=== PATIENT | male | born 1960 | race Caucasian/White ===

== ENCOUNTER 2017-08-05 15:48 | Day surgery (SDC) | payer OTHER ==
[~2017-08-05 15:48] MED LIST: Ketorolac Tromethamine 30 MG/ML VIAL ONE; Lidocaine 1% PF 5 ML VIAL ONE; PROPOFOL 200 MG/20 ML VIAL ONE; Succinylcholine Chloride 20 MG/ML 10 ml SYRINGE FS ONE
[2017-08-05] MEDS ORDERED: Morphine 4 MG/ML Carpuject ONE ×2 (16:07→16:43)
[2017-08-05] MEDS ORDERED: Adacel (T-DAP) 0.5 ML VIAL ONE (16:12)
[2017-08-05] MEDS ORDERED: CEFAZOLIN/Water 2 GM/20 ML SYRINGE SLOW IVP SCH (16:30)
[2017-08-05] MEDS ORDERED: Lidocaine 1% PF 5 ML VIAL ONE (16:57)
--- NOTE | 2017-08-05 17:15 | RAD ---
RIGHT HAND TWO VIEW 08/05/17 HISTORY: Foreign body. COMPARISON: None. FINDINGS: Foreign object is seen through what appears to be second distal and middle phalanx curling over the d istal interphalangeal joint. IMPRESSION: Radiopaque, likely a nail, coursing through the distal phalanx diaphysis and middle phalanx diaphysis crossing over the distal interphalangeal joint. POS: CHANDAN
[2017-08-05] MEDS ORDERED: Bacitracin Zinc Ointment 30 gm TUBE ONE (17:17)
[2017-08-05] MEDS ORDERED: Bupivacaine/Epinephrine 0.25% 30 ML VIAL ONE (17:17)
[2017-08-05] MEDS ORDERED: Sodium Chloride 0.9% 10 ML ONE ×2 (17:18→19:01)
[2017-08-05] MEDS ORDERED: Thrombin 5000 UNITS/5 ML VIAL ONE (17:21)
[2017-08-05] MEDS ORDERED: Bupivacaine PF 0.5% 30 ML VIAL ONE (17:21)
[2017-08-05] MEDS ORDERED: Midazolam HCl 2 mg/2 ml Vial ONE (18:09)
[2017-08-05] MEDS ORDERED: Fentanyl 100 MCG/2 ML VIAL ONE (18:09)
[2017-08-05] MEDS ORDERED: Ketorolac Tromethamine 30 MG/ML VIAL ONE (19:12)
[2017-08-05] MEDS ORDERED: HYDROcodone/Acetaminophen 5/325 mg Tablet ONE ×2 (19:39)
--- NOTE | 2017-08-05 22:24 | RAD ---
RIGHT FINGER MINIMUM TWO VIEW 08/05/17 HISTORY: Nail removal. COMPARISON: Radiograph same day. FINDINGS: Minimal fluoroscopic images. Imaged demonstrate satisfactory appearance with removal of the nail. IMPRESSION: Satisfactory removal of the nail. POS: MARY
--- NOTE | 2017-08-06 07:12 | OP ---
DATE OF PROCEDURE: 08/05/2017 SURGEON: Chris Mchugh M.D. ANESTHESIA: General LMA technique augmented by 10 mL of 0.5% Marcaine metacarpophalangeal block, lev el of the index finger without epinephrine. PREOPERATIVE DIAGNOSES: Large nail from a nail gun that initially went through a board into his fing er, distal third of the right nondominant index finger and then into another board. The boards were on the wall and required the ambulance service to remove the boards from the wall, and then in the em ergency room, my partner, Dr. Koffi Khan, evaluated the patient and removed the board from the [facility]. This left me with a nail protruding, and the patient is neurologically and vascularly intact. PROCEDURES PERFORMED: 1. Open middle phalanx fracture debridement of material associated with open fracture. 2. Open debridement of wound. 3. Removal of nail, metallic foreign body. 4. C-arm supervision. TOURNIQUET TIME: 14 minutes. ESTIMATED BLOOD LOSS: 10 mL. By exam, exploration, and 2-point discrimination before the surgery, both the digital nerves, flexor profundus and extensors were intact. DESCRIPTION OF PROCEDURE: After successful general LMA technique, the limb was prepped and draped. Timeout was done appropriately. We then injected the metacarpophalangeal joint level with 10 mL of 0 .5% Marcaine with epinephrine for digital block. Now 5 minutes later, [facility], identified which side of the nail was curved, and it was the distal radial aspect, so we removed it from distal ulnar aspect and we removed it from this point. We dissected down to the nail as it entered into the soft tissue and the bone, visualizing it going into the bone and partially into the joint and then irrigated this area after doing a neuroplasty to protect the digital nerves with the t ourniquet inflated. We then finished our debridement of the material associated with open fracture a nd did not find any foreign bodies, collateral injuries or other joint abnormality, but by placing an 18 gauge catheter in the bone hole on the distal and radial side of the previous nail now gone, we c ould irrigate through and through to the opposite side, and we did this with 500 mL, 20 at a time, us ing the needle tip syringe. We then deflated the tourniquet after performing a true neuroplasty in order to visualize the nerves before we could do much dissection in order to save them. The patient then had a bulky dressing appl ied, and left the operating room without evidence of anesthetic or operative complication with nail n ow completely removed.
== END 2017-08-05 19:06 | disposition home or self-care (01) ==
LOC: ERS 15:48 → SDC 17:35
PROVIDERS: ATTEND Orthopaedic Surgery Hand Surgery
PROC: 0JBJ0ZZ Excision of Right Hand Subcutaneous Tissue and Fascia, Open Approach (ICD-10-PCS; principal; 2017-08-05)
PROC: 01S Peripheral Nervous System, Reposition (ICD-10-PCS; principal; 2017-08-05)
DX: S61.240A Puncture wound with foreign body of right index finger without damage to nail, initial encounter (principal); Z79.84 Long term (current) use of oral hypoglycemic drugs; Z79.899 Other long term (current) drug therapy; W45.0XXA Nail entering through skin, initial encounter
CPT/HCPCS: 76001; 90471; 90715; 96374; 96376; A4216; G0390; J1885; J2001; J2250; J2270; J2704; J3010; J3490; S0020

== ENCOUNTER 2017-11-09 15:50 | Outpatient (CLI) | payer OTHER | END 2017-11-09 15:51 | disposition home or self-care (01) | LOC: BICCT 15:50 | PROVIDERS: ATTEND Internal Medicine | DX: R91.1 Solitary pulmonary nodule (principal); K44.9 Diaphragmatic hernia without obstruction or gangrene | CPT/HCPCS: 71250 ==

== ENCOUNTER 2025-05-06 11:30 | Observation (INO) | payer BC, SELFPAY ==
[2025-05-06 12:11] LABS: Bacteria/HPF None Seen HPF (None Seen); CAUTI Indications for Culture Pelvic or flank pain; Glucose, Urine (Dipstick) 150 mg/dL (Negative); Leukocyte Negative Leu/uL (Negative); Protein, Urine (Dipstick) 200 mg/dL (Neg-Trace); RBC/HPF 0-3 HPF (0-3); Specific Gravity, Urine 1.031 (1.002-1.036); WBC/HPF 0-3 HPF (0-3)
[2025-05-06 12:16] LABS: Urine Culture Reflex No No
[2025-05-06] MEDS ORDERED: Ondansetron PF 4 MG/2 ML Vial ONE ×2 (12:38→16:27)
[2025-05-06] MEDS ORDERED: Ketorolac Tromethamine 30 MG (1 mL) VIAL ONE (12:38)
[2025-05-06 13:33] LABS: #Basophils 0.08 10x3/uL (0.0-0.2); #Eosinophils 0.39 10x3/uL (0.0-0.7); #Monocytes 0.86 10x3/uL (0.11-0.59); #Neutrophils 8.18 10x3/uL (1.40-6.50); %Basophils 0.7 % (0.0-1.0); %Eosinophils 3.6 % (0.0-10.0); %Lymphocytes 12.0 % (21.0-51.0); %Monocytes 7.9 % (0.0-10.0); %Neutrophils 74.6 % (42.0-75.0); Hematocrit 38.8 % (42.0-52.0); Hemoglobin 13.1 g/dL (14.0-18.0); Mean Corpuscular Hemoglobin 30.0 pg (27.0-31.0); Mean Corpuscular Volume 89.0 fL (78.0-98.0); Platelet Count 273 10x3/uL (130-400); Red Blood Cell (RBC) Count 4.36 mill/uL (4.70-6.10); White Blood Cell (WBC) Count 10.95 10x3/uL (4.8-10.8)
[2025-05-06 13:54] LABS: ALT (SGPT) 41 U/L (Less than 45); AST (SGOT) 35 U/L (11-34); Albumin 3.3 g/dL (3.1-4.5); Alkaline Phosphatase 108 U/L (40-110); Anion Gap 13 mmol/L (10-20); BUN (Urea Nitrogen) 27 mg/dL (8.4-25.7); Bilirubin, Total 0.3 mg/dL (0.3-1.2); Calc. Creatinine Clearance 0 mL/min (70-130); Calcium 10.0 mg/dL (7.8-10.44); Carbon Dioxide 26 mmol/L (23-31); Chloride 103 mmol/L (98-107); Globulin 4.1 g/dL (2.4-3.5); Glucose 274 mg/dL (80-115); Lipase 29 U/L (8-78); Potassium 4.4 mmol/L (3.5-5.1); Sodium 138 mmol/L (136-145)
[2025-05-06] MEDS ORDERED: Melatonin 3 MG TAB PO PRN (15:57)
[2025-05-06] MEDS ORDERED: Dextrose 50% Abboject 50 ML SYRINGE SLOW IVP PRN (15:57)
[2025-05-06] MEDS ORDERED: Ondansetron PF 4 MG/2 ML Vial IVP PRN (15:57)
[2025-05-06] MEDS ORDERED: Ketorolac Tromethamine 30 MG (1 mL) VIAL IVP PRN (15:57)
[2025-05-06] MEDS ORDERED: Glucagon 1 MG/ML KIT IM PRN (15:57)
[2025-05-06] MEDS ORDERED: Acetaminophen 325 MG TAB PO PRN (15:57)
[2025-05-06] MEDS ORDERED: LevoFLOXacin D5W 500 mg (100 mL) BAG ONE (16:08)
[2025-05-06] MEDS ORDERED: SUGAMMADEX SODIUM 200 MG/2 ML VIAL ONE (16:27)
[2025-05-06] MEDS ORDERED: Rocuronium Bromide 10 MG/ML (10ML VIAL) ONE (16:27)
[2025-05-06] MEDS ORDERED: PROPOFOL 40 ML ONE (16:27)
[2025-05-06] MEDS ORDERED: fentaNYL PF 100 MCG/2 ML SYRINGE ONE (16:27)
[2025-05-06] MEDS ORDERED: Lidocaine 1% PF 5 ML VIAL ONE (16:27)
[2025-05-06] MEDS ORDERED: HYDROcodone/Acetaminophen 5/325 mg Tablet PO PRN ×2 (16:59)
[2025-05-06] MEDS ORDERED: GUAIFENESIN SF SOLN 200 MG/10 ML UDCUP PO PRN (19:29)
[2025-05-06] MEDS: Famotidine 20 MG TAB PO SCH (20:16)
[2025-05-06] MEDS: Benzonatate 100 MG CAP PO PRN (20:16)
[2025-05-06 21:10] VITALS: BMI 26.6
[2025-05-07 05:24] LABS: #Basophils 0.04 10x3/uL (0.0-0.2); #Eosinophils Less than 0.03 10x3/uL (0.0-0.7); #Monocytes 0.72 10x3/uL (0.11-0.59); #Neutrophils 9.34 10x3/uL (1.40-6.50); %Basophils 0.4 % (0.0-1.0); %Eosinophils 0.1 % (0.0-10.0); %Lymphocytes 8.3 % (21.0-51.0); %Monocytes 6.5 % (0.0-10.0); %Neutrophils 83.7 % (42.0-75.0); Hematocrit 34.8 % (42.0-52.0); Hemoglobin 11.9 g/dL (14.0-18.0); Mean Corpuscular Hemoglobin 30.2 pg (27.0-31.0); Mean Corpuscular Volume 88.3 fL (78.0-98.0); Platelet Count 266 10x3/uL (130-400); Red Blood Cell (RBC) Count 3.94 mill/uL (4.70-6.10); White Blood Cell (WBC) Count 11.15 10x3/uL (4.8-10.8)
[2025-05-07 05:43] LABS: Anion Gap 12 mmol/L (10-20); BUN (Urea Nitrogen) 28 mg/dL (8.4-25.7); Calc. Creatinine Clearance 42 mL/min (70-130); Calcium 8.9 mg/dL (7.8-10.44); Carbon Dioxide 23 mmol/L (23-31); Chloride 107 mmol/L (98-107); Glucose 242 mg/dL (80-115); Potassium 4.7 mmol/L (3.5-5.1); Sodium 137 mmol/L (136-145)
[2025-05-07] MEDS: cefTRIAXone\\ROCEPHIN 2 GM in Sodium Chloride 0.9% 100 ML IVPB SCH (08:44)
[2025-05-07 08:49] LABS: INR-International Normal Ratio 1.2; PTT 38.1 sec (22.9-36.1); Prothrombin Time 15.0 sec (12.0-14.7)
[2025-05-07 12:27] VITALS: BP 150/81; TEMP 98
== END 2025-05-07 17:48 | disposition home or self-care (01) ==
LOC: ERS 11:30 → T4-A 15:40
PROVIDERS: ADMIT Family Medicine; ATTEND Internal Medicine
PROC: 0T768DZ Dilation of Right Ureter with Intraluminal Device, Via Natural or Artificial Opening Endoscopic (ICD-10-PCS; principal; 2025-05-06)
DX: N13.2 Hydronephrosis with renal and ureteral calculous obstruction (principal); N17.9 Acute kidney failure, unspecified; N40.0 Benign prostatic hyperplasia without lower urinary tract symptoms; I10 Essential (primary) hypertension; E11.9 Type 2 diabetes mellitus without complications; E78.00 Pure hypercholesterolemia, unspecified; E66.9 Obesity, unspecified; K21.9 Gastro-esophageal reflux disease without esophagitis; F17.220 Nicotine dependence, chewing tobacco, uncomplicated; Z68.26 Body mass index [BMI] 26.0-26.9, adult; Z88.8 Allergy status to other drugs, medicaments and biological substances; Z79.84 Long term (current) use of oral hypoglycemic drugs; Z79.899 Other long term (current) drug therapy
CPT/HCPCS: 36415; 36416; 74176; 74420; 80048; 80053; 81001; 83690; 85025; 85610; 85730; 87086; 96361; 96374; 96375; C1769; C2617; J0696; J1100; J1815; J1885; J1956; J2704; J7030; Q9967

== ENCOUNTER 2025-05-09 11:20 | Outpatient (CLI) | payer MEDICARE, BC ==
[2025-05-09 12:12] LABS: #Basophils 0.10 10x3/uL (0.0-0.2); #Eosinophils 0.39 10x3/uL (0.0-0.7); #Monocytes 0.61 10x3/uL (0.11-0.59); #Neutrophils 6.88 10x3/uL (1.40-6.50); %Basophils 1.0 % (0.0-1.0); %Eosinophils 4.0 % (0.0-10.0); %Lymphocytes 15.4 % (21.0-51.0); %Monocytes 6.3 % (0.0-10.0); %Neutrophils 71.2 % (42.0-75.0); Hematocrit 42.2 % (42.0-52.0); Hemoglobin 14.4 g/dL (14.0-18.0); Mean Corpuscular Hemoglobin 30.6 pg (27.0-31.0); Mean Corpuscular Volume 89.6 fL (78.0-98.0); Platelet Count 287 10x3/uL (130-400); Red Blood Cell (RBC) Count 4.71 mill/uL (4.70-6.10); White Blood Cell (WBC) Count 9.67 10x3/uL (4.8-10.8)
[2025-05-09 12:34] LABS: INR-International Normal Ratio 1.1; PTT 33.8 sec (22.9-36.1); Prothrombin Time 14.7 sec (12.0-14.7)
[2025-05-09 12:51] LABS: Anion Gap 16 mmol/L (10-20); BUN (Urea Nitrogen) 25 mg/dL (8.4-25.7); Calc. Creatinine Clearance 0 mL/min (70-130); Calcium 9.7 mg/dL (7.8-10.44); Carbon Dioxide 26 mmol/L (23-31); Chloride 101 mmol/L (98-107); Glucose 208 mg/dL (80-115); Potassium 4.1 mmol/L (3.5-5.1); Sodium 139 mmol/L (136-145)
== END 2025-05-09 11:21 | disposition home or self-care (01) ==
LOC: NM 11:20 → LABBT 11:21
PROVIDERS: ATTEND Urology
DX: Z01.818 Encounter for other preprocedural examination (principal); N20.0 Calculus of kidney; R10.9 Unspecified abdominal pain
CPT/HCPCS: 80048; 85025; 85610; 85730; 93005; 93010